=== PATIENT | male | born 1960 | race Asian ===

== ENCOUNTER 2021-09-15 08:53 | Emergency (ER) | payer MEDICAID, SELFPAY ==
[~2021-09-15] VITALS: Ht 175.3 cm; Wt 65.8 kg
--- NOTE | 2021-09-15 08:59 | NUR ---
ER in triage examining patient.
--- NOTE | 2021-09-15 09:00 | NUR ---
Placed patient to ER bed 8 to gown for evaluation. Side rails up. Report given to Vandana.
[2021-09-15] MEDS ORDERED: HALOPERIDOL LACTATE 5 MG/ML VIAL IM ONE (09:30)
[2021-09-15] MEDS ORDERED: ALPRAZolam 0.25 MG TABLET PO ONE (09:30)
[2021-09-15 09:48] VITALS: BP_SYST 110
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
--- NOTE | 2021-09-15 09:55 | NUR ---
haldol and xanax given, unable to scan pt. agitated, security amd Dr. Figueroa at bedside
--- NOTE | 2021-09-15 10:51 | NUR ---
patient very agitated DTO, security called at bedside for safety, medicated quiet now lab drawn result pending.
[2021-09-15 11:12] LABS: ANION GAP 12 (5-15); CALCIUM 8.8 mg/dL (8.4-11.0); CHLORIDE 106 mmol/L (98-107); CREATININE 0.62 mg/dL (0.55-1.30); GLUCOSE 117 mg/dL (70-99); SODIUM SERUM 141 mmol/L (136-145); UREA NITROGEN, BLOOD 11 mg/dL (8-21)
[2021-09-15 11:13] LABS: BASOPHILS % (AUTO) 0.7 % (0.0-2.0); EOSINOPHILS % (AUTO) 0.2 % (0.0-4.0); HEMATOCRIT 39.6 % (36-54); HEMOGLOBIN 12.6 g/dL (14.0-18.0); LYMPHOCYTES # (AUTO) 0.3 K/uL (1.0-5.5); LYMPHOCYTES % (AUTO) 5.6 % (20.5-51.5); MEAN CORPUSCULAR HEMOGLOBIN 28 pg (27-31); MEAN CORPUSCULAR HGB CONC 32 % (32-36); MEAN CORPUSCULAR VOLUME 87 fL (79.0-98.0); MONOCYTES # (AUTO) 0.2 K/uL (0.0-1.0); MONOCYTES % (AUTO) 2.9 % (1.7-9.3); NEUTROPHILS # (AUTO) 5.4 K/uL (1.8-7.7); NEUTROPHILS % (AUTO) 90.6 % (40.0-70.0); PLATELET COUNT (AUTO) 268 K/uL (130-430); RED BLOOD CELL COUNT(AUTO) 4.57 MIL/uL (4.2-6.2); RED CELL DISTRIBUTION WIDTH 14.9 % (9.0-15.0)
[2021-09-15 11:26] LABS: ALANINE AMINOTRANSFERASE 15 U/L (12-78); ALBUMIN 3.6 g/dL (3.4-4.8); ALCOHOL, BLOOD 18 mg/dL (<10); ASPARTATE AMINOTRANSFERASE 15 U/L (10-37); TOTAL BILIRUBIN 0.2 mg/dL (0.0-1.0)
[2021-09-15 11:33] LABS: GFR AFRICAN AMERICAN 171 mL/min (>90)
[2021-09-15 11:35] LABS: ACETAMINOPHEN < 1 ug/mL (1-30)
--- NOTE | 2021-09-15 11:56 | NUR ---
COVID SWAB PERFORMED AT BEDSIDE AND SENT TO LAB
[2021-09-15 15:05] LABS: BARBITURATE, URINE NEGATIVE (NEG <=200); BENZODIAZEPINE, URINE NEGATIVE (NEG <=150); CANNABINOID, URINE POSITIVE (NEG <=50); COCAINE, URINE NEGATIVE (NEG <=150); METHAMPHETAMINES SCREEN,URINE NEGATIVE (NEG <=500); OPIATE, URINE POSITIVE (NEG <=100); PHENCYCLIDINE SCREEN,URINE NEGATIVE (NEG <=25); UR TRICYCLIC ANTIDEPRESSANTS NEGATIVE (NEG <=300); URINE AMPHETAMINE NEGATIVE (NEG <=500); URINE METHADONE NEGATIVE (NEG <=200); URINE OXYCODONE SCREEN NEGATIVE (NEG <=100); URINE PROPOXYPHENE SCREEN NEGATIVE (NEG <=300)
--- NOTE | 2021-09-15 15:45 | NUR ---
message left to update the family
[2021-09-15] MEDS ORDERED: LORazepam 1 MG TABLET PO ONE (17:15)
--- NOTE | 2021-09-15 17:21 | NUR ---
patient alert, oriented x4 cooperative with care medically cleared psychiatrist Marcel at bedside to evaluate patient.
--- NOTE | 2021-09-15 18:03 | NUR ---
phone update to Howard martinez
--- NOTE | 2021-09-15 18:13 | NUR ---
patient was placed on hold at 1430 for danger to self by Dr Rod. awaiting for placement.
--- NOTE | 2021-09-15 19:22 | NUR ---
REPORT ENDORSED TO NURSE PAYAM ALL QUESTIONS ANSWERED.
--- NOTE | 2021-09-15 19:40 | NUR ---
Pt sitting in bed, eating dinner. Pt calm and cooperative at this time. Denies any complaints. Pt has colostomy bag in place right lower abdomen, stoma pink and moist, brown stool in the bag. Vital signs stable.
--- NOTE | 2021-09-15 19:56 | NUR ---
Report to Elmo at [facility]
--- NOTE | 2021-09-15 19:58 | NUR ---
accepting physician at [facility] Dr. Romo
--- NOTE | 2021-09-15 20:57 | NUR ---
Report given to [facility] ambulance unit [id number]. Pt left via EMS, calm and cooperatve, stable vital signs.
[2021-09-15 20:58] VITALS: BP_SYST 119
== END 2021-09-15 20:58 ==
LOC: SED 08:53
DX: F23 Brief psychotic disorder (principal); Z20.822 Contact with and (suspected) exposure to COVID-19; Z79.899 Other long term (current) drug therapy
CPT/HCPCS: 36415; 80053; 80307; 82550; 85025; 87426; 96372; 99285; G0480; J1630; G0481; G0482